=== PATIENT | male | born 1955 | race Hispanic/Latino ===

== ENCOUNTER → 2022-03-13 | Outpatient (CLI) | payer MEDICARE ==
[2022-03-13] MEDS: REGADENOSON 0.4 MG/5 ML PF SYG IVP SCH (13:14)
== END | disposition home or self-care (01) ==
LOC: RAH 11:13
PROVIDERS: ATTEND Internal Medicine Cardiovascular Disease
DX: R06.02 Shortness of breath (principal)
CPT/HCPCS: 78452; 96374; 93017; J2785; A9500 ×2

== ENCOUNTER 2023-04-27 22:20 | Inpatient (IN) | payer OTHER, MEDICARE ==
[~2023-04-27] VITALS: Ht 175.3 cm; Wt 72.2 kg
[2023-04-27 22:57] LABS: BASOPHILS # (AUTO) 0.04 K/uL (0.00-0.20); BASOPHILS % (AUTO) 0.6 % (0.0-5.0); EOSINOPHILS # (AUTO) 0.37 K/uL (0.00-0.70); EOSINOPHILS % (AUTO) 5.5 % (0.0-8.0); HEMATOCRIT 25.2 % (42-54); IMMATURE GRANULOCYTE ABSOLUTE 0.03 K/uL (0-1); LYMPHOCYTES # (AUTO) 0.9 K/uL (1.0-4.8); LYMPHOCYTES % (AUTO) 13.6 % (21.0-51.0); MEAN CORPUSCULAR HEMOGLOBIN 31.9 pg (27.0-33.0); MEAN CORPUSCULAR HGB CONC 33.3 g/dL (32.0-36.0); MEAN CORPUSCULAR VOLUME 95.8 fL (79-99); MONOCYTES # (AUTO) 0.6 K/uL (0.1-1.0); MONOCYTES % (AUTO) 9.3 % (3.0-13.0); NEUTROPHILS # (AUTO) 4.7 K/uL (1.8-7.7); NEUTROPHILS % (AUTO) 70.6 % (40.0-77.0); PLATELET COUNT (AUTO) 146 K/uL (130-400); RED BLOOD CELL COUNT(AUTO) 2.63 MIL/uL (4.50-6.20); RED CELL DISTRIBUTION WIDTH 13.7 % (11.0-15.5); WHITE BLOOD COUNT (AUTO) 6.7 K/uL (4.8-10.8)
[2023-04-27 22:59] LABS: SARS-CoV-2, RNA, NAAT NEGATIVE SARS CoV-2 (NEGATIVE)
[2023-04-27] MEDS ORDERED: IPRATROPIUM/ALBUTEROL SULFATE 3 ML SOLUTION IH ONE (23:00)
[2023-04-27] MEDS ORDERED: SOLU-MEDROL 125MG VIAL IVP ONE (23:00)
[2023-04-27 23:10] VITALS: PULSE 90; RESP 18
[2023-04-27 23:16] LABS: INFLUENZA TYPE A Negative For Type A (NEGATIVE); INFLUENZA TYPE B Negative For Type B (NEGATIVE)
[2023-04-27 23:17] LABS: ALBUMIN 3.6 g/dL (3.5-5.0); BILIRUBIN,TOTAL 0.3 mg/dL (0.2-1.0); MAGNESIUM 1.6 mg/dL (1.80-2.40); POTASSIUM 3.7 mmol/L (3.5-5.1); TOTAL PROTEIN, SERUM 7.5 g/dL (6.0-8.3)
[2023-04-27 23:20] LABS: CREATININE 8.2 mg/dL (0.5-1.5)
[2023-04-27] MEDS ORDERED: FUROSEMIDE 40MG VIAL IVP ONE (23:30)
[2023-04-27] MEDS ORDERED: MAGNESIUM 2GM PREMIX 50ML 50 ML IV SCH (23:30)
[2023-04-27] MEDS ORDERED: NITROGLYCERIN 50MG/D5W 250ML 250 BOT IV SCH (23:30)
[2023-04-27 23:59] LABS: INR 0.94 (0.85-1.15); PROTHROMBIN TIME 10.9 SEC (9.6-11.6)
[2023-04-28 00:01] LABS: PARTIAL THROMBOPLASTIN TIME 27.6 SEC (26.3-35.5)
[2023-04-28] MEDS ORDERED: ALBUTEROL 0.083% 2.5 MG/3 ML INH IH PRN (00:30)
[2023-04-28] MEDS ORDERED: ONDANSETRON 4MG INJ IVP PRN (00:30)
[2023-04-28] MEDS ORDERED: HEPARIN 5,000 UNIT VIAL SQ PRN (00:30)
[2023-04-28] MEDS ORDERED: ACETAMINOPHEN 325 MG TAB PO PRN (00:30)
[2023-04-28] MEDS ORDERED: CLONIDINE HCL 0.1 MG TABLET PO PRN (00:30)
[2023-04-28] MEDS ORDERED: HYDRALAZINE 20MG/ML VIAL IV PRN (00:30)
[2023-04-28 01:00] LABS: THYROID STIMULATING HORMONE 1.74 uIU/mL (0.36-3.74)
[2023-04-28 01:52] LABS: HEMOGLOBIN A1C 6.1 % (4.0-6.0)
[2023-04-28 02:11] LABS: INR 0.94 (0.85-1.15); PROTHROMBIN TIME 10.9 SEC (9.6-11.6)
[2023-04-28 02:12] LABS: PARTIAL THROMBOPLASTIN TIME 26.3 SEC (26.3-35.5)
[2023-04-28] MEDS ORDERED: HYDR-4153 PO (02:22)
[2023-04-28] MEDS ORDERED: ASPI-1197 PO (02:22)
[2023-04-28] MEDS ORDERED: FOLI0.8T22 PO (02:22)
[2023-04-28] MEDS ORDERED: FERR-82 PO (02:22)
[2023-04-28] MEDS ORDERED: FURO40TA5 PO (02:22)
[2023-04-28] MEDS ORDERED: ISOS30TA92 PO (02:22)
[2023-04-28] MEDS ORDERED: CLOP75TA32 PO (02:22)
[2023-04-28] MEDS: HEPARIN 25,000 UNITS/250ML D5W 250 ML IV SCH ×5 (02:29→22:39)
[2023-04-28] MEDS ORDERED: CARV25TA PO (03:48)
[2023-04-28 04:42] LABS: APPEARANCE,URINE CLEAR (CLEAR); BILIRUBIN,URINE NEGATIVE (NEGATIVE); COLOR,URINE COLORLESS (YELLOW); GLUCOSE, URINE (UA) TRACE mg/dL (NEGATIVE); KETONES,URINE NEGATIVE (NEGATIVE); LEUKOCYTE ESTERASE ,URINE NEGATIVE Leu/uL (NEGATIVE); NITRATE,URINE NEGATIVE (NEGATIVE); OCCULT BLOOD,URINE SMALL (NEGATIVE); PH,URINE 5.5 (5.0-8.0); PROTEIN,URINE 100 mg/dL (NEGATIVE); UROBILINOGEN,URINE 0.2 mg/dL (0.2-1.0)
[2023-04-28 04:49] LABS: AMPHET/METH SCREEN,URINE NEGATIVE (NEGATIVE); BARBITURATE SCREEN, URINE NEGATIVE (NEGATIVE); BENZODIAZEPINES SCREEN,URINE NEGATIVE (NEGATIVE); CANNABINOID SCREEN,URINE NEGATIVE (NEGATIVE); COCAINE SCREEN,URINE NEGATIVE (NEGATIVE); OPIATE SCREEN,URINE NEGATIVE (NEGATIVE); PHENCYCLIDINE SCREEN,URINE NEGATIVE (NEGATIVE)
[2023-04-28 04:59] LABS: ADD UA MICROSCOPIC YES
[2023-04-28 05:00] LABS: MUCUS,URINE RARE LPF (None Seen); RBC,URINE 0-1 /HPF (0-1); SQUAMOUS EPITHELIAL CELL,UR RARE /HPF (0-2); WBC,URINE 0-1 /HPF (0-1)
[2023-04-28 05:02] LABS: POTASSIUM 3.4 mmol/L (3.5-5.1)
[2023-04-28 05:04] LABS: CREATININE 8.1 mg/dL (0.5-1.5)
[2023-04-28 08:05] LABS: BASOPHILS # (AUTO) 0.01 K/uL (0.00-0.20); BASOPHILS % (AUTO) 0.1 % (0.0-5.0); HEMATOCRIT 24.4 % (42-54); IMMATURE GRANULOCYTE ABSOLUTE 0.03 K/uL (0-1); LYMPHOCYTES # (AUTO) 0.2 K/uL (1.0-4.8); LYMPHOCYTES % (AUTO) 2.4 % (21.0-51.0); MEAN CORPUSCULAR HEMOGLOBIN 32.2 pg (27.0-33.0); MEAN CORPUSCULAR HGB CONC 33.6 g/dL (32.0-36.0); MEAN CORPUSCULAR VOLUME 95.7 fL (79-99); MONOCYTES # (AUTO) 0.1 K/uL (0.1-1.0); MONOCYTES % (AUTO) 0.9 % (3.0-13.0); NEUTROPHILS # (AUTO) 8.3 K/uL (1.8-7.7); NEUTROPHILS % (AUTO) 96.3 % (40.0-77.0); PLATELET COUNT (AUTO) 159 K/uL (130-400); RED BLOOD CELL COUNT(AUTO) 2.55 MIL/uL (4.50-6.20); RED CELL DISTRIBUTION WIDTH 13.6 % (11.0-15.5); WHITE BLOOD COUNT (AUTO) 8.7 K/uL (4.8-10.8)
[2023-04-28 08:31] LABS: INR 0.95 (0.85-1.15); PROTHROMBIN TIME 11.1 SEC (9.6-11.6)
[2023-04-28] MEDS: FUROSEMIDE 40MG VIAL IV SCH ×2 (08:32→20:45)
[2023-04-28] MEDS: CARVEDILOL 25 MG TABLET PO SCH ×2 (08:32→20:46)
[2023-04-28] MEDS: ASPIRIN 81MG CHEW TAB PO SCH (08:33)
[2023-04-28] MEDS: PANTOPRAZOLE 40 MG TAB DR PO SCH (08:33)
[2023-04-28] MEDS: Vitamin B Complex/Vit C/Folic Acid PO SCH (08:33)
[2023-04-28] MEDS: ISOSORBIDE MONO 30MG SR TAB PO SCH ×2 (08:33→20:45)
[2023-04-28] MEDS: FERROUS SULFATE 325 MG TABLET.DR PO SCH (08:33)
[2023-04-28] MEDS: CLOPIDOGREL 75MG TAB PO SCH (08:34)
[2023-04-28] MEDS ORDERED: NON-FORMULARY MEDICATION 1 EACH (Folic Acid/Vitamin B Comp W-C (Rena-Vite Tablet) 0.8 MG) PO SCH (09:00)
[2023-04-28] MEDS ORDERED: NON-FORMULARY MEDICATION 1 EACH (Ferrous Sulfate (Iron) 325 MG) PO SCH (09:00)
[2023-04-28] MEDS ORDERED: CALCITRIOL 0.25 MCG CAP PO ONE (10:30)
[2023-04-28 14:02] LABS: INR 0.98 (0.85-1.15); PROTHROMBIN TIME 11.4 SEC (9.6-11.6)
[2023-04-28 14:03] LABS: PARTIAL THROMBOPLASTIN TIME 68.5 SEC (26.3-35.5)
[2023-04-28 16:31] LABS: ABG BASE EXCESS -8.5 mmol/L (-2.0-3.0); ABG HCO3 14.6 mmol/L (21.0-28.0); ABG OXYGEN SATURATION 97.5 % (95.0-99.0); ABG PCO2 25 mmHg (35-48); ABG PH 7.381 (7.35-7.450); VENT MODE, BG RA (ROOM AIR)
[2023-04-28 18:51] VITALS: BP 129/71; PULSE 76; RESP 19
[2023-04-28 19:41] VITALS: O2SAT 97
[2023-04-28 20:00] VITALS: BP 116/69; PULSE 70; RESP 18
[2023-04-28] MEDS ORDERED: SODIUM BICARB 8.4% 50ML SYRING 150 MEQ in DEXTROSE 5%-WATER 1,000 ML IVP SCH (21:00)
[2023-04-29] VITALS (25 sets, daily range): BP systolic 107–137; BP diastolic 61–79; PULSE 58–91; RESP 14–18; TEMP 98.2–98.3; O2SAT 97
[2023-04-29 05:29] LABS: MAGNESIUM 1.9 mg/dL (1.80-2.40); PHOSPHORUS 7.8 mg/dL (2.5-4.9)
[2023-04-29 05:48] LABS: CREATININE 8.4 mg/dL (0.5-1.5)
[2023-04-29 06:47] LABS: BASOPHILS # (AUTO) 0.03 K/uL (0.00-0.20); BASOPHILS % (AUTO) 0.4 % (0.0-5.0); EOSINOPHILS # (AUTO) 0.09 K/uL (0.00-0.70); EOSINOPHILS % (AUTO) 1.2 % (0.0-8.0); HEMATOCRIT 21.2 % (42-54); IMMATURE GRANULOCYTE ABSOLUTE 0.02 K/uL (0-1); LYMPHOCYTES # (AUTO) 0.8 K/uL (1.0-4.8); LYMPHOCYTES % (AUTO) 10.2 % (21.0-51.0); MEAN CORPUSCULAR HEMOGLOBIN 31.8 pg (27.0-33.0); MEAN CORPUSCULAR HGB CONC 33.5 g/dL (32.0-36.0); MEAN CORPUSCULAR VOLUME 95.1 fL (79-99); MONOCYTES # (AUTO) 0.8 K/uL (0.1-1.0); MONOCYTES % (AUTO) 10.9 % (3.0-13.0); PLATELET COUNT (AUTO) 145 K/uL (130-400); RED BLOOD CELL COUNT(AUTO) 2.23 MIL/uL (4.50-6.20); RED CELL DISTRIBUTION WIDTH 13.7 % (11.0-15.5); WHITE BLOOD COUNT (AUTO) 7.7 K/uL (4.8-10.8)
[2023-04-29] MEDS: CALCITRIOL 0.25 MCG CAP PO SCH (08:25)
[2023-04-29] MEDS: FUROSEMIDE 40MG VIAL IV SCH (08:26)
[2023-04-29] MEDS: ASPIRIN 81MG CHEW TAB PO SCH (08:26)
[2023-04-29] MEDS: Vitamin B Complex/Vit C/Folic Acid PO SCH (08:26)
[2023-04-29] MEDS: CLOPIDOGREL 75MG TAB PO SCH (08:27)
[2023-04-29] MEDS: FERROUS SULFATE 325 MG TABLET.DR PO SCH (08:27)
[2023-04-29] MEDS: ISOSORBIDE MONO 30MG SR TAB PO SCH ×2 (08:28→20:37)
[2023-04-29] MEDS: ATORVASTATIN 20 MG TABLET PO SCH (08:28)
[2023-04-29] MEDS: CARVEDILOL 25 MG TABLET PO SCH (08:28)
[2023-04-29] MEDS: PANTOPRAZOLE 40 MG TAB DR PO SCH (08:28)
[2023-04-29] MEDS: EPOETIN ALFA-EPBX (NON-ESRD) 10,000 UNIT/ML VIAL SQ SCH (08:36)
[2023-04-29 08:44] LABS: PROTHROMBIN TIME 11.6 SEC (9.6-11.6)
[2023-04-29] MEDS ORDERED: LIDOCAINE HCL 1% MDV 50ML VIAL ONE (10:40)
[2023-04-29] MEDS ORDERED: HEPARIN 1,000 UNIT VIAL ONE (10:40)
[2023-04-29] MEDS: HEPARIN 25,000 UNITS/250ML D5W 250 ML IV SCH ×2 (12:30→19:42)
[2023-04-29 12:40] LABS: HEMATOCRIT 20.7 % (42-54)
[2023-04-29 12:43] LABS: ALBUMIN 3.2 g/dL (3.5-5.0)
[2023-04-29 13:14] LABS: CREATININE 8.6 mg/dL (0.5-1.5)
[2023-04-29 14:18] LABS: HIV 1&2 ANTIBODY Non-Reactive (Negative); HIV-1 p24 Antigen Non-Reactive (Negative)
[2023-04-29] MEDS ORDERED: ONDANSETRON 4MG TABLET PO PRN (17:30)
[2023-04-29] MEDS ORDERED: DiphenhydrAMINE HCL 50 MG/ML VIAL IVP PRN (18:00)
[2023-04-29] MEDS: CARVEDILOL 12.5 MG TABLET PO SCH (20:38)
[2023-04-30] VITALS (19 sets, daily range): BP systolic 119–169; BP diastolic 65–87; PULSE 61–99; RESP 14–20; TEMP 98; O2SAT 96–97
[2023-04-30 05:09] LABS: BASOPHILS # (AUTO) 0.03 K/uL (0.00-0.20); BASOPHILS % (AUTO) 0.4 % (0.0-5.0); EOSINOPHILS # (AUTO) 0.17 K/uL (0.00-0.70); EOSINOPHILS % (AUTO) 2.5 % (0.0-8.0); HEMATOCRIT 22.1 % (42-54); IMMATURE GRANULOCYTE ABSOLUTE 0.03 K/uL (0-1); LYMPHOCYTES # (AUTO) 0.7 K/uL (1.0-4.8); LYMPHOCYTES % (AUTO) 10.6 % (21.0-51.0); MEAN CORPUSCULAR HEMOGLOBIN 32.5 pg (27.0-33.0); MEAN CORPUSCULAR HGB CONC 33.9 g/dL (32.0-36.0); MEAN CORPUSCULAR VOLUME 95.7 fL (79-99); MONOCYTES % (AUTO) 14.6 % (3.0-13.0); NEUTROPHILS # (AUTO) 4.9 K/uL (1.8-7.7); NEUTROPHILS % (AUTO) 71.5 % (40.0-77.0); PLATELET COUNT (AUTO) 143 K/uL (130-400); RED BLOOD CELL COUNT(AUTO) 2.31 MIL/uL (4.50-6.20); RED CELL DISTRIBUTION WIDTH 13.7 % (11.0-15.5); WHITE BLOOD COUNT (AUTO) 6.8 K/uL (4.8-10.8)
[2023-04-30 05:27] LABS: ALANINE AMINOTRANSFERASE 17 U/L (12-78); ALBUMIN 3.1 g/dL (3.5-5.0); AMMONIA < 10 umol/L (11-32); ASPARTATE AMINOTRANSFERASE 13 U/L (10-37); BILIRUBIN,TOTAL 0.4 mg/dL (0.2-1.0); CARBON DIOXIDE 30 mmol/L (21-32); CHLORIDE 100 mmol/L (101-111); CREATININE 6.3 mg/dL (0.5-1.5); GLOMERULAR FILTR. RATE CALC 9 mL/min (>90); GLUCOSE,RANDOM 133 mg/dL (70-105); PHOSPHORUS 5.3 mg/dL (2.5-4.9); POTASSIUM 3.2 mmol/L (3.5-5.1); SODIUM SERUM 140 mmol/L (136-145); TOTAL PROTEIN, SERUM 6.5 g/dL (6.0-8.3); UREA NITROGEN, BLOOD 71 mg/dL (7-18)
[2023-04-30 05:38] LABS: B-TYPE NATRIURETIC PEPTIDE 594 pg/mL (0-100)
[2023-04-30 05:41] LABS: EOSINOPHILS % (MANUAL) 3 % (1-6); LYMPHOCYTES % (MANUAL) 8 % (22-44); MONOCYTES % (MANUAL) 7 % (2-9); SEGMENTED NEUTROPHILS % 82 % (40-70); TOTAL CELLS COUNTED 100
[2023-04-30 05:42] LABS: MAN.DIFF COMMENT-IMPRESSION MANUAL DIFFERENTIAL; PLATELET MORPHOLOGY COMMENT ADEQUATE
[2023-04-30 06:53] LABS: INR 0.98 (0.85-1.15); PROTHROMBIN TIME 11.4 SEC (9.6-11.6)
[2023-04-30 06:55] LABS: PARTIAL THROMBOPLASTIN TIME 62.9 SEC (26.3-35.5)
[2023-04-30 07:40] LABS: HEPATITIS B CORE AB TOTAL Non-Reactive (Nonreactive); HEPATITIS B SURFACE ANTIBODY Negative (Reactive); HEPATITIS B SURFACE ANTIGEN Non-Reactive (Nonreactive)
[2023-04-30] MEDS: Vitamin B Complex/Vit C/Folic Acid PO SCH (09:00)
[2023-04-30] MEDS: ASPIRIN 81MG CHEW TAB PO SCH (09:00)
[2023-04-30] MEDS: CALCITRIOL 0.25 MCG CAP PO SCH (09:00)
[2023-04-30] MEDS: FERROUS SULFATE 325 MG TABLET.DR PO SCH (09:00)
[2023-04-30] MEDS: ATORVASTATIN 20 MG TABLET PO SCH (09:00)
[2023-04-30] MEDS: PANTOPRAZOLE 40 MG TAB DR PO SCH (09:00)
[2023-04-30] MEDS: CARVEDILOL 12.5 MG TABLET PO SCH ×2 (09:00→19:54)
[2023-04-30] MEDS: CLOPIDOGREL 75MG TAB PO SCH (09:00)
[2023-04-30] MEDS: HEPARIN 25,000 UNITS/250ML D5W 250 ML IV SCH ×2 (16:19→18:30)
[2023-04-30 16:34] LABS: HEMATOCRIT 28.8 % (42-54)
[2023-05-01] VITALS (26 sets, daily range): BP systolic 86–156; BP diastolic 59–92; PULSE 44–91; RESP 14–22; TEMP 97.9–98; O2SAT 98–100
[2023-05-01 04:07] LABS: BASOPHILS # (AUTO) 0.05 K/uL (0.00-0.20); BASOPHILS % (AUTO) 0.6 % (0.0-5.0); EOSINOPHILS # (AUTO) 0.28 K/uL (0.00-0.70); EOSINOPHILS % (AUTO) 3.5 % (0.0-8.0); IMMATURE GRANULOCYTE ABSOLUTE 0.01 K/uL (0-1); LYMPHOCYTES # (AUTO) 0.9 K/uL (1.0-4.8); LYMPHOCYTES % (AUTO) 10.9 % (21.0-51.0); MEAN CORPUSCULAR HEMOGLOBIN 31.6 pg (27.0-33.0); MEAN CORPUSCULAR HGB CONC 33.3 g/dL (32.0-36.0); MEAN CORPUSCULAR VOLUME 94.7 fL (79-99); MONOCYTES # (AUTO) 1.4 K/uL (0.1-1.0); MONOCYTES % (AUTO) 16.8 % (3.0-13.0); NEUTROPHILS # (AUTO) 5.5 K/uL (1.8-7.7); NEUTROPHILS % (AUTO) 68.1 % (40.0-77.0); PLATELET COUNT (AUTO) 148 K/uL (130-400); RED BLOOD CELL COUNT(AUTO) 2.85 MIL/uL (4.50-6.20); RED CELL DISTRIBUTION WIDTH 14.7 % (11.0-15.5)
[2023-05-01 04:10] LABS: CREATININE 5.3 mg/dL (0.5-1.5)
[2023-05-01 04:18] LABS: POTASSIUM 2.9 mmol/L (3.5-5.1)
[2023-05-01] MEDS ORDERED: KCL 20 MEQ ERTAB PO ONE ×2 (04:30→08:30)
[2023-05-01 04:35] LABS: B-TYPE NATRIURETIC PEPTIDE 389 pg/mL (0-100)
[2023-05-01] MEDS: Vitamin B Complex/Vit C/Folic Acid PO SCH (09:21)
[2023-05-01] MEDS: CARVEDILOL 12.5 MG TABLET PO SCH ×2 (09:22→19:43)
[2023-05-01] MEDS: LISINOPRIL 20 MG TABLET PO SCH (09:22)
[2023-05-01] MEDS: ASPIRIN 81MG CHEW TAB PO SCH (09:22)
[2023-05-01] MEDS: ATORVASTATIN 20 MG TABLET PO SCH (09:23)
[2023-05-01] MEDS: CLOPIDOGREL 75MG TAB PO SCH (09:23)
[2023-05-01] MEDS: PANTOPRAZOLE 40 MG TAB DR PO SCH (09:23)
[2023-05-01] MEDS: FERROUS SULFATE 325 MG TABLET.DR PO SCH (09:23)
[2023-05-01] MEDS: CALCITRIOL 0.25 MCG CAP PO SCH (09:23)
[2023-05-01] MEDS: ENOXAPARIN SODIUM 30 MG/0.3 ML SQ SCH (09:25)
[2023-05-01] MEDS: EPOETIN ALFA-EPBX (NON-ESRD) 10,000 UNIT/ML VIAL SQ SCH (09:25)
[2023-05-01] MEDS ORDERED: HEPARIN 5,000 UNIT VIAL IJ SCH (13:00)
[2023-05-02] VITALS (8 sets, daily range): BP systolic 116–168; BP diastolic 60–90; PULSE 55–77; RESP 16–20; O2SAT 98–100
[2023-05-02] MEDS: PANTOPRAZOLE 40 MG TAB DR PO SCH (09:06)
[2023-05-02] MEDS: ATORVASTATIN 20 MG TABLET PO SCH (09:06)
[2023-05-02] MEDS: CALCITRIOL 0.25 MCG CAP PO SCH (09:07)
[2023-05-02] MEDS: LISINOPRIL 20 MG TABLET PO SCH (09:07)
[2023-05-02] MEDS: FERROUS SULFATE 325 MG TABLET.DR PO SCH (09:07)
[2023-05-02] MEDS: CLOPIDOGREL 75MG TAB PO SCH (09:07)
[2023-05-02] MEDS: ASPIRIN 81MG CHEW TAB PO SCH (09:07)
[2023-05-02] MEDS: Vitamin B Complex/Vit C/Folic Acid PO SCH (09:07)
[2023-05-02] MEDS: CARVEDILOL 12.5 MG TABLET PO SCH ×2 (09:07→19:38)
[2023-05-02] MEDS: ENOXAPARIN SODIUM 30 MG/0.3 ML SQ SCH (09:08)
[2023-05-02] MEDS ORDERED: 0.9%NACL 1000ML 1,000 ML IV SCH (23:55)
[2023-05-03] VITALS (13 sets, daily range): BP systolic 119–153; BP diastolic 69–88; PULSE 58–68; RESP 16–18; O2SAT 97–99
[2023-05-03 04:05] LABS: BASOPHILS # (AUTO) 0.04 K/uL (0.00-0.20); BASOPHILS % (AUTO) 0.5 % (0.0-5.0); EOSINOPHILS # (AUTO) 0.48 K/uL (0.00-0.70); EOSINOPHILS % (AUTO) 5.5 % (0.0-8.0); HEMATOCRIT 27.9 % (42-54); IMMATURE GRANULOCYTE ABSOLUTE 0.02 K/uL (0-1); LYMPHOCYTES % (AUTO) 11.6 % (21.0-51.0); MEAN CORPUSCULAR HEMOGLOBIN 31.3 pg (27.0-33.0); MEAN CORPUSCULAR HGB CONC 31.9 g/dL (32.0-36.0); MEAN CORPUSCULAR VOLUME 98.2 fL (79-99); MONOCYTES # (AUTO) 1.3 K/uL (0.1-1.0); MONOCYTES % (AUTO) 14.7 % (3.0-13.0); NEUTROPHILS % (AUTO) 67.5 % (40.0-77.0); PLATELET COUNT (AUTO) 146 K/uL (130-400); RED BLOOD CELL COUNT(AUTO) 2.84 MIL/uL (4.50-6.20); RED CELL DISTRIBUTION WIDTH 14.3 % (11.0-15.5); WHITE BLOOD COUNT (AUTO) 8.8 K/uL (4.8-10.8)
[2023-05-03 04:11] LABS: INR < 0.93 (0.85-1.15); PROTHROMBIN TIME 10.8 SEC (9.6-11.6)
[2023-05-03 04:12] LABS: PARTIAL THROMBOPLASTIN TIME 25.6 SEC (26.3-35.5)
[2023-05-03 04:39] LABS: BILIRUBIN,TOTAL 0.3 mg/dL (0.2-1.0); CREATININE 6.3 mg/dL (0.5-1.5); MAGNESIUM 1.9 mg/dL (1.80-2.40); POTASSIUM 3.7 mmol/L (3.5-5.1); TOTAL PROTEIN, SERUM 6.4 g/dL (6.0-8.3)
[2023-05-03] MEDS: Vitamin B Complex/Vit C/Folic Acid PO SCH (09:00)
[2023-05-03] MEDS: CALCITRIOL 0.25 MCG CAP PO SCH (09:00)
[2023-05-03] MEDS: CLOPIDOGREL 75MG TAB PO SCH (09:00)
[2023-05-03] MEDS: CARVEDILOL 12.5 MG TABLET PO SCH ×2 (09:00→19:45)
[2023-05-03] MEDS: PANTOPRAZOLE 40 MG TAB DR PO SCH (09:00)
[2023-05-03] MEDS: FERROUS SULFATE 325 MG TABLET.DR PO SCH (09:00)
[2023-05-03] MEDS: ATORVASTATIN 20 MG TABLET PO SCH (09:00)
[2023-05-03] MEDS: ASPIRIN 81MG CHEW TAB PO SCH (09:00)
[2023-05-03] MEDS: LISINOPRIL 20 MG TABLET PO SCH (09:00)
[2023-05-03] MEDS: ENOXAPARIN SODIUM 30 MG/0.3 ML SQ SCH (09:00)
[2023-05-03] MEDS ORDERED: LIDOCAINE HCL 400MG/20ML VIAL ONE (13:13)
[2023-05-03] MEDS ORDERED: IOHEXOL 350 MG/ML 100ML INFUS..BTL IV ONE (13:13)
[2023-05-03] MEDS ORDERED: NITROGLYCERIN 50MG VIAL ONE (13:14)
[2023-05-03] MEDS ORDERED: HEPARIN 10,000 UNIT/10ML (1,000 UNIT/ML) VIAL ONE (13:14)
[2023-05-03] MEDS ORDERED: IOHEXOL-350 50ML VIAL IV ONE (13:20)
[2023-05-03] MEDS ORDERED: MIDAZOLAM HCL 1 MG/ML 2ML VIAL ONE (13:32)
[2023-05-03] MEDS ORDERED: FENTANYL CITRATE PF 50 MCG/1 ML 2ML VIAL ONE (13:32)
[2023-05-03] MEDS ORDERED: VERAPAMIL HCL 2.5 MG/ML VIAL ONE (13:33)
[2023-05-03] MEDS ORDERED: HEPARIN 1,000 UNIT VIAL ONE (13:53)
[2023-05-04] VITALS (22 sets, daily range): BP systolic 114–145; BP diastolic 68–82; PULSE 58–74; RESP 14–17; TEMP 98–98.3; O2SAT 98
[2023-05-04 05:36] LABS: HEMATOCRIT 28.5 % (42-54); MEAN CORPUSCULAR HEMOGLOBIN 32.2 pg (27.0-33.0); MEAN CORPUSCULAR HGB CONC 31.9 g/dL (32.0-36.0); MEAN CORPUSCULAR VOLUME 100.7 fL (79-99); RED BLOOD CELL COUNT(AUTO) 2.83 MIL/uL (4.50-6.20); RED CELL DISTRIBUTION WIDTH 14.2 % (11.0-15.5); WHITE BLOOD COUNT (AUTO) 8.6 K/uL (4.8-10.8)
[2023-05-04 05:55] LABS: CREATININE 7.3 mg/dL (0.5-1.5)
[2023-05-04 05:58] LABS: MAGNESIUM 1.9 mg/dL (1.80-2.40); PHOSPHORUS 5.5 mg/dL (2.5-4.9)
[2023-05-04] MEDS: CARVEDILOL 12.5 MG TABLET PO SCH ×2 (09:00→19:35)
[2023-05-04] MEDS: FERROUS SULFATE 325 MG TABLET.DR PO SCH (10:03)
[2023-05-04] MEDS: PANTOPRAZOLE 40 MG TAB DR PO SCH (10:03)
[2023-05-04] MEDS: CALCITRIOL 0.25 MCG CAP PO SCH (10:03)
[2023-05-04] MEDS: SACUBITRIL/VALSARTAN 1 EACH TABLET PO SCH ×2 (10:03→19:35)
[2023-05-04] MEDS: Vitamin B Complex/Vit C/Folic Acid PO SCH (10:03)
[2023-05-04] MEDS: ATORVASTATIN 20 MG TABLET PO SCH (10:03)
[2023-05-04] MEDS: EPOETIN ALFA-EPBX (NON-ESRD) 10,000 UNIT/ML VIAL SQ SCH (17:55)
[2023-05-04] MEDS: CLOPIDOGREL 75MG TAB PO SCH (17:55)
[2023-05-04] MEDS: ASPIRIN 81MG CHEW TAB PO SCH (17:56)
[2023-05-05] VITALS (32 sets, daily range): BP systolic 85–138; BP diastolic 59–80; PULSE 57–72; RESP 10–20; O2SAT 98–99
[2023-05-05 04:48] LABS: HEMATOCRIT 30.7 % (42-54); MEAN CORPUSCULAR HEMOGLOBIN 31.3 pg (27.0-33.0); MEAN CORPUSCULAR HGB CONC 32.6 g/dL (32.0-36.0); MEAN CORPUSCULAR VOLUME 96.2 fL (79-99); RED BLOOD CELL COUNT(AUTO) 3.19 MIL/uL (4.50-6.20); RED CELL DISTRIBUTION WIDTH 14.1 % (11.0-15.5); WHITE BLOOD COUNT (AUTO) 8.4 K/uL (4.8-10.8)
[2023-05-05 04:57] LABS: CREATININE 6.2 mg/dL (0.5-1.5); POTASSIUM 3.4 mmol/L (3.5-5.1)
[2023-05-05 05:03] LABS: INR 0.94 (0.85-1.15); PROTHROMBIN TIME 10.9 SEC (9.6-11.6)
[2023-05-05] MEDS ORDERED: HEPARIN 1,000 UNIT VIAL ONE (07:12)
[2023-05-05] MEDS ORDERED: LIDOCAINE HCL 400MG/20ML VIAL ONE (07:12)
[2023-05-05] MEDS: Vitamin B Complex/Vit C/Folic Acid PO SCH (09:00)
[2023-05-05] MEDS ORDERED: CEFAZOLIN SODIUM 1 GM VIAL ONE ×2 (09:19→11:16)
[2023-05-05] MEDS ORDERED: LIDOCAINE PF 100MG/5ML (2%) SYRINGE 5ML ONE (10:55)
[2023-05-05] MEDS ORDERED: MIDAZOLAM HCL 1 MG/ML 2ML VIAL ONE (10:55)
[2023-05-05] MEDS ORDERED: FENTANYL CITRATE PF 50 MCG/1 ML 2ML VIAL ONE (10:56)
[2023-05-05] MEDS ORDERED: ROCURONIUM 10MG/1ML SYR 10 MG/ML ML ONE (10:56)
[2023-05-05] MEDS ORDERED: PROPOFOL 10 MG/ML 20ML VIAL IV ONE (10:56)
[2023-05-05] MEDS ORDERED: CEFAZOLIN SODIUM 2 GM VIAL IVPB ONE (11:00)
[2023-05-05] MEDS ORDERED: EPHEDRINE SULFATE 50 MG/ML AMPULE ONE (11:08)
[2023-05-05] MEDS ORDERED: DEXAMETHASONE SOD PHOSPHATE 4 MG/ML 1ML VIAL ONE (11:12)
[2023-05-05] MEDS ORDERED: ONDANSETRON 4MG INJ ONE (11:13)
[2023-05-05] MEDS ORDERED: GLYCOPYRROLATE 1 MG/5 ML SYRINGE ONE (11:47)
[2023-05-05] MEDS ORDERED: NEOSTIGMINE 5MG/5ML SYR IV ONE (11:48)
[2023-05-05] MEDS ORDERED: CEFAZOLIN SODIUM 1 GM VIAL IVPB PRN (12:00)
[2023-05-05] MEDS ORDERED: TRAMADOL HCL 50 MG TABLET PO PRN ×2 (12:00)
[2023-05-05] MEDS ORDERED: ACETAMINOPHEN 325 MG TAB PO PRN (12:00)
[2023-05-05] MEDS ORDERED: CEFAZOLIN SODIUM 2 GM VIAL IVPB PRN (12:00)
[2023-05-05] MEDS: SACUBITRIL/VALSARTAN 1 EACH TABLET PO SCH ×2 (13:45→20:18)
[2023-05-05] MEDS: ATORVASTATIN 20 MG TABLET PO SCH (13:45)
[2023-05-05] MEDS: FERROUS SULFATE 325 MG TABLET.DR PO SCH (13:46)
[2023-05-05] MEDS: CALCITRIOL 0.25 MCG CAP PO SCH (13:46)
[2023-05-05] MEDS: CLOPIDOGREL 75MG TAB PO SCH (13:46)
[2023-05-05] MEDS: CARVEDILOL 12.5 MG TABLET PO SCH ×2 (13:47→20:18)
[2023-05-05] MEDS: ASPIRIN 81MG CHEW TAB PO SCH (13:47)
[2023-05-05] MEDS: PANTOPRAZOLE 40 MG TAB DR PO SCH (13:49)
[2023-05-06] VITALS (23 sets, daily range): BP systolic 97–162; BP diastolic 54–69; PULSE 55–69; RESP 14–20; TEMP 97.4–97.7; O2SAT 97
[2023-05-06 04:58] LABS: HEMATOCRIT 30.1 % (42-54); MEAN CORPUSCULAR HEMOGLOBIN 32.3 pg (27.0-33.0); MEAN CORPUSCULAR HGB CONC 33.2 g/dL (32.0-36.0); MEAN CORPUSCULAR VOLUME 97.1 fL (79-99); RED BLOOD CELL COUNT(AUTO) 3.1 MIL/uL (4.50-6.20); RED CELL DISTRIBUTION WIDTH 14.2 % (11.0-15.5); WHITE BLOOD COUNT (AUTO) 11.2 K/uL (4.8-10.8)
[2023-05-06 05:08] LABS: CREATININE 7.2 mg/dL (0.5-1.5); POTASSIUM 4.1 mmol/L (3.5-5.1)
[2023-05-06] MEDS: CALCITRIOL 0.25 MCG CAP PO SCH (09:00)
[2023-05-06] MEDS: SACUBITRIL/VALSARTAN 1 EACH TABLET PO SCH ×2 (09:00→20:34)
[2023-05-06] MEDS: PANTOPRAZOLE 40 MG TAB DR PO SCH (12:23)
[2023-05-06] MEDS: FERROUS SULFATE 325 MG TABLET.DR PO SCH (12:23)
[2023-05-06] MEDS: ATORVASTATIN 20 MG TABLET PO SCH (12:24)
[2023-05-06] MEDS: CARVEDILOL 12.5 MG TABLET PO SCH (12:24)
[2023-05-06] MEDS: CLOPIDOGREL 75MG TAB PO SCH (12:24)
[2023-05-06] MEDS: ASPIRIN 81MG CHEW TAB PO SCH (12:25)
[2023-05-06] MEDS: Vitamin B Complex/Vit C/Folic Acid PO SCH (12:29)
[2023-05-06] MEDS: CARVEDILOL 3.125 MG TABLET PO SCH (21:00)
[2023-05-07] VITALS: BP 115/62; PULSE 64; RESP 20
[2023-05-07 04:00] VITALS: BP 110/61; PULSE 63; RESP 20
[2023-05-07 08:00] VITALS: BP 114/68; PULSE 64; RESP 17; O2SAT 98
[2023-05-07] MEDS ORDERED: CARV3.1262 PO (10:12)
[2023-05-07] MEDS ORDERED: SACU1TAB PO (10:12)
[2023-05-07] MEDS: Vitamin B Complex/Vit C/Folic Acid PO SCH (10:43)
[2023-05-07] MEDS: PANTOPRAZOLE 40 MG TAB DR PO SCH (10:43)
[2023-05-07] MEDS: CALCITRIOL 0.25 MCG CAP PO SCH (10:43)
[2023-05-07] MEDS: ATORVASTATIN 20 MG TABLET PO SCH (10:43)
[2023-05-07] MEDS: FERROUS SULFATE 325 MG TABLET.DR PO SCH (10:44)
[2023-05-07] MEDS: CLOPIDOGREL 75MG TAB PO SCH (10:44)
[2023-05-07] MEDS: ASPIRIN 81MG CHEW TAB PO SCH (10:45)
[2023-05-07] MEDS: SACUBITRIL/VALSARTAN 1 EACH TABLET PO SCH (11:17)
[2023-05-07] MEDS: CARVEDILOL 3.125 MG TABLET PO SCH (11:18)
[2023-05-07 12:00] VITALS: BP 113/64; PULSE 67; RESP 19
[2023-05-07 16:00] VITALS: BP 115/74; PULSE 62; RESP 19
[2023-05-07] MEDS ORDERED: EPOETIN ALFA-EPBX (NON-ESRD) 10,000 UNIT/ML VIAL SQ SCH (21:00)
== END 2023-05-07 18:30 | disposition home or self-care (01) | DRG 264 ==
LOC: EDH 22:20 → EDHIP 04-28 00:21 → OBSVTOIN 04-28 00:21 → EDHIP 04-28 04:28 → 4DH 04-28 18:33
PROVIDERS: ADMIT Internal Medicine; ATTEND Internal Medicine
PROC: 05HY33Z Insertion of Infusion Device into Upper Vein, Percutaneous Approach (ICD-10-PCS; 2023-04-29)
PROC: 5A1D70Z Performance of Urinary Filtration, Intermittent, Less than 6 Hours Per Day (ICD-10-PCS; 2023-04-29)
PROC: 5A1D70Z Performance of Urinary Filtration, Intermittent, Less than 6 Hours Per Day (ICD-10-PCS; 2023-04-30)
PROC: 5A1D70Z Performance of Urinary Filtration, Intermittent, Less than 6 Hours Per Day (ICD-10-PCS; 2023-05-01)
PROC: 4A023N7 Measurement of Cardiac Sampling and Pressure, Left Heart, Percutaneous Approach (ICD-10-PCS; principal; 2023-05-03)
PROC: B2111ZZ Fluoroscopy of Multiple Coronary Arteries using Low Osmolar Contrast (ICD-10-PCS; 2023-05-03)
PROC: B2151ZZ Fluoroscopy of Left Heart using Low Osmolar Contrast (ICD-10-PCS; 2023-05-03)
PROC: 5A1D70Z Performance of Urinary Filtration, Intermittent, Less than 6 Hours Per Day (ICD-10-PCS; 2023-05-04)
PROC: 031C3ZF Bypass Left Radial Artery to Lower Arm Vein, Percutaneous Approach (ICD-10-PCS; 2023-05-05)
PROC: 0JH63XZ Insertion of Tunneled Vascular Access Device into Chest Subcutaneous Tissue and Fascia, Percutaneous Approach (ICD-10-PCS; 2023-05-05)
PROC: 02H633Z Insertion of Infusion Device into Right Atrium, Percutaneous Approach (ICD-10-PCS; 2023-05-05)
PROC: B5181ZA Fluoroscopy of Superior Vena Cava using Low Osmolar Contrast, Guidance (ICD-10-PCS; 2023-05-05)
PROC: B548ZZA Ultrasonography of Superior Vena Cava, Guidance (ICD-10-PCS; 2023-05-05)
PROC: 5A1D70Z Performance of Urinary Filtration, Intermittent, Less than 6 Hours Per Day (ICD-10-PCS; 2023-05-06)
DX: I21.4 Non-ST elevation (NSTEMI) myocardial infarction (principal); I50.43 Acute on chronic combined systolic (congestive) and diastolic (congestive) heart failure; N18.6 End stage renal disease; I13.2 Hypertensive heart and chronic kidney disease with heart failure and with stage 5 chronic kidney disease, or end stage renal disease; N17.9 Acute kidney failure, unspecified; I42.8 Other cardiomyopathies; E87.20 Acidosis, unspecified; I42.0 Dilated cardiomyopathy; E11.22 Type 2 diabetes mellitus with diabetic chronic kidney disease; E11.65 Type 2 diabetes mellitus with hyperglycemia; I16.0 Hypertensive urgency; D63.1 Anemia in chronic kidney disease; Z20.822 Contact with and (suspected) exposure to COVID-19; E78.5 Hyperlipidemia, unspecified; I25.10 Atherosclerotic heart disease of native coronary artery without angina pectoris; I25.2 Old myocardial infarction; Z79.82 Long term (current) use of aspirin; Z79.899 Other long term (current) drug therapy; Z82.49 Family history of ischemic heart disease and other diseases of the circulatory system; Z83.3 Family history of diabetes mellitus; Z86.74 Personal history of sudden cardiac arrest; Z87.891 Personal history of nicotine dependence; Z91.158 Patient's noncompliance with renal dialysis for other reason; Z99.2 Dependence on renal dialysis
CPT/HCPCS: 36415; 36556; 36558; 36581; 36600; 71045; 77001; 80048; 80053; 80061; 80305; 81001; 82010; 82040; 82140; 82270; 82565; 82803; 82948; 83036; 83540; 83550; 83605; 83735; 83880; 83970; 84100; 84132; 84443; 84484; 84520; 85014; 85018; 85025; 85027; 85610; 85730; 86701; 86704; 86706; 86803; 86850; 86900; 86901; 86923; 87040; 87340; 87390; 87635; 87804; 90935; 93005; 93306; 93356; 93458; 93971; 94640; 99156; 99157; 99291; C1750; C1752; C1760; C1894; C9803; G0378; J0690; J1100; J1644; J1650; J1940; J2001; J2250; J2405; J2704; J2710; J2930; J3010; J3475; J3490; J7030; J7070; P9016; Q9967; A4649; A4930; A6251; C1713; G0168; Q5106; Q9965

== ENCOUNTER 2023-05-08 13:18 | Emergency (ER) | payer OTHER, MEDICARE ==
[~2023-05-08] VITALS: Ht 175.3 cm; Wt 70.8 kg
[~2023-05-08 13:18] MED LIST: ASPI-1197 PO; CARV3.1262 PO; CLOP75TA32 PO; FERR-82 PO; FOLI0.8T22 PO; SACU1TAB PO
[2023-05-08 14:56] LABS: APPEARANCE,URINE CLEAR (CLEAR); BILIRUBIN,URINE NEGATIVE (NEGATIVE); COLOR,URINE LIGHT-YELLOW (YELLOW); GLUCOSE, URINE (UA) TRACE mg/dL (NEGATIVE); KETONES,URINE NEGATIVE (NEGATIVE); LEUKOCYTE ESTERASE ,URINE NEGATIVE Leu/uL (NEGATIVE); NITRATE,URINE NEGATIVE (NEGATIVE); OCCULT BLOOD,URINE SMALL (NEGATIVE); PROTEIN,URINE 300 mg/dL (NEGATIVE); UROBILINOGEN,URINE 0.2 mg/dL (0.2-1.0)
[2023-05-08 14:58] LABS: ADD UA MICROSCOPIC YES
[2023-05-08 15:01] LABS: SQUAMOUS EPITHELIAL CELL,UR RARE /HPF (0-2)
[2023-05-08 15:11] LABS: BASOPHILS # (AUTO) 0.02 K/uL (0.00-0.20); BASOPHILS % (AUTO) 0.2 % (0.0-5.0); EOSINOPHILS # (AUTO) 0.23 K/uL (0.00-0.70); EOSINOPHILS % (AUTO) 2.9 % (0.0-8.0); HEMATOCRIT 29.3 % (42-54); IMMATURE GRANULOCYTE ABSOLUTE 0.02 K/uL (0-1); LYMPHOCYTES # (AUTO) 0.7 K/uL (1.0-4.8); LYMPHOCYTES % (AUTO) 8.2 % (21.0-51.0); MEAN CORPUSCULAR HEMOGLOBIN 32.1 pg (27.0-33.0); MEAN CORPUSCULAR HGB CONC 33.1 g/dL (32.0-36.0); MONOCYTES # (AUTO) 1.2 K/uL (0.1-1.0); MONOCYTES % (AUTO) 15.2 % (3.0-13.0); NEUTROPHILS # (AUTO) 5.9 K/uL (1.8-7.7); NEUTROPHILS % (AUTO) 73.3 % (40.0-77.0); PLATELET COUNT (AUTO) 182 K/uL (130-400); RED BLOOD CELL COUNT(AUTO) 3.02 MIL/uL (4.50-6.20); RED CELL DISTRIBUTION WIDTH 14.6 % (11.0-15.5)
[2023-05-08 15:22] LABS: CREATININE 7.8 mg/dL (0.5-1.5); POTASSIUM 3.8 mmol/L (3.5-5.1)
[2023-05-08 15:27] LABS: ALBUMIN 3.1 g/dL (3.5-5.0); BILIRUBIN,TOTAL 0.3 mg/dL (0.2-1.0); TOTAL PROTEIN, SERUM 6.7 g/dL (6.0-8.3)
[2023-05-08 15:38] LABS: B-TYPE NATRIURETIC PEPTIDE 851 pg/mL (0-100)
[2023-05-08 16:28] VITALS: BP 141/76; PULSE 72; RESP 18; O2SAT 100
== END 2023-05-08 17:39 | disposition home or self-care (01) ==
LOC: EDH 13:18
DX: N32.0 Bladder-neck obstruction (principal); I13.2 Hypertensive heart and chronic kidney disease with heart failure and with stage 5 chronic kidney disease, or end stage renal disease; E11.22 Type 2 diabetes mellitus with diabetic chronic kidney disease; N18.6 End stage renal disease; I50.9 Heart failure, unspecified; Z99.2 Dependence on renal dialysis; Z79.02 Long term (current) use of antithrombotics/antiplatelets; Z79.82 Long term (current) use of aspirin; Z79.899 Other long term (current) drug therapy
CPT/HCPCS: 36415; 51702; 80053; 81001; 83605; 83880; 85025

== ENCOUNTER → 2023-06-17 | Outpatient (CLI) | payer OTHER, MEDICARE | END | disposition home or self-care (01) | LOC: RAH 08:17 | PROVIDERS: ATTEND Urology | DX: N32.89 Other specified disorders of bladder (principal); K44.9 Diaphragmatic hernia without obstruction or gangrene; K57.90 Diverticulosis of intestine, part unspecified, without perforation or abscess without bleeding; K40.90 Unilateral inguinal hernia, without obstruction or gangrene, not specified as recurrent; R33.8 Other retention of urine; N19 Unspecified kidney failure; M47.815 Spondylosis without myelopathy or radiculopathy, thoracolumbar region; I70.90 Unspecified atherosclerosis | CPT/HCPCS: 74176 ==